=== PATIENT | female | born 1980 | race Caucasian/White ===

== ENCOUNTER 2017-01-02 09:12 | Emergency (ER) | payer OTHER ==
[~2017-01-02] VITALS: Ht 162.6 cm; Wt 74.8 kg
--- NOTE | 2017-01-02 09:21 | ED GI/GU/ABDOMINAL COMPLAINT ---
History of Present Illness General Chief Complaint: Abdominal Pain/Flank Pain Stated Complaint: ABD PAIN Source: patient, family Exam Limitations: no limitations Vital Signs & Intake/Output Vital Signs & Intake/Output Vital Signs Date Time Temp Pulse Resp B/P Pulse O2 O2 Flow FiO2 Ox Delivery Rate 01/02 0926 97.4 96 18 148/89 97 Room Air Allergies Coded Allergies: benzoyl peroxide (Intermediate, RASH 01/02/17) Sulfa (Sulfonamide Antibiotics) (Mild, RASH 01/02/17) latex (Mild, RASH 01/02/17) Penicillins (UNKNOWN 01/02/17) Reconcile Medications Zolpidem Tartrate 10 MG TABLET 1 TAB PO QPM SLEEP (Reported) Triage Nurses Notes Reviewed? yes ? n Is pt currently ? No HPI: Patient has been having severe dysmenorrhea over the past year. The symptoms are worsening. Patient states that now when she gets her. She is out of commission for a few days. Patient has had canceled the office and even had to cancel the operating room because the pain. Patient's second menstruation 2 days ago and has been having 10 out of 10 severe crampy pain at the site of the incision. The pain radiates down into both thighs. The pain is constant. There is no relief with Motrin. Patient states that she occasionally takes Ultram but then only makes her feel sleepy and does not do anything for the pain. Patient is called her heel scorer multiple times about this but has been unable to see him yet for it. Patient denies any dysuria. There is no nausea or vomiting. Past History Travel History Traveled to [place] past 21 day No Medical History Any Pertinent Medical History? see below for history Surgical History Surgical History: Psychosocial History Tobacco Use: Never used ETOH Use: occasional use Illicit Drug Use: denies illicit drug use Family History Hx Contributory? No Review of Systems Review of Systems Constitutional: Reports: no symptoms. EENTM: Reports: no symptoms. Respiratory: Reports: no symptoms. Cardiovascular: Reports: no symptoms. GI: Reports: see HPI, abdominal pain. Genitourinary: Reports: see HPI. Musculoskeletal: Reports: no symptoms. Skin: Reports: no symptoms. Neurological/Psychological: Reports: no symptoms. Hematologic/Endocrine: Reports: no symptoms. Immunologic/Allergic: Reports: no symptoms. All Other Systems: Reviewed and Negative Physical Exam Physical Exam General Appearance: well developed/nourished, alert, awake, anxious, moderate distress Head: atraumatic, normal appearance Eyes: Bilateral: PERRL, EOMI. Ears, Nose, Throat, Mouth: hearing grossly normal, moist mucous membrane Neck: normal inspection, supple, full range of motion Respiratory: normal breath sounds, chest non-tender, no respiratory distress, lungs clear Cardiovascular: regular rate/rhythm, normal peripheral pulses Gastrointestinal: normal bowel sounds, soft Back: normal inspection, normal range of motion Extremities: normal range of motion Neurologic/Psych: no motor/sensory deficits, awake, alert, oriented x 3, normal gait, normal mood/affect Skin: intact, normal color, warm/dry Core Measures ACS in differential dx? No Severe Sepsis Present: No Septic Shock Present: No Progress Differential Diagnosis: ectopic , gastritis, hepatitis, ischemic bowel, inflamm bowel dis, intrauterine , PID/cervicitis, threatened AB, UTI/ pyelo, ENDOMETRIOSIS Plan of Care: Orders Procedure Date/time Status URINALYSIS 01/03 920 Active HUMAN BETA HCG SCREEN 01/03 920 Complete COMPREHENSIVE METABOLIC PANEL 01/03 920 Complete CBC WITHOUT DIFFERENTIAL 01/03 920 Complete Laboratory Tests 01/02/17 0932: Anion Gap 16, Estimated GFR > 60, BUN/Creatinine Ratio 20.0, Glucose 108 H, Calcium 9.9, Total Bilirubin 0.5, AST 74 H, ALT 95 H, Alkaline Phosphatase 69, Total Protein 7.4, Albumin 4.5, Globulin 2.9, Albumin/Globulin Ratio 1.6, Total Beta HCG NEGATIVE, CBC w Diff NO MAN DIFF REQ, RBC 4.65, MCV 92.3, MCH 31.1 H, RDW 12.0, MPV 7.4, Gran % 48.8, Lymphocytes % 39.4, Monocytes % 7.5, Eosinophils % 3.8, Basophils % 0.5, Absolute Granulocytes 3.0, Absolute Lymphocytes 2.4, Absolute Monocytes 0.5, Absolute Eosinophils 0.2, Absolute Basophils 0, PUBS MCHC 33.7 Diagnostic Imaging: Viewed by Me: Ultrasound. Discussed w/RAD: Ultrasound. Radiology Impression: PATIENT: SIVA ANDUJAR PRESENT AGE: 36 PATIENT ACCOUNT NO: [id number] : 80 LOCATION: [facility] ORDERING PHYSICIAN: JOSE CLARKE MD SERVICE DATE: 01/02/17 EXAM TYPE: US - US-TRANSVAGINAL EXAMINATION: US TRANSVAGINAL CLINICAL INFORMATION: Dysmenorrhagia. Endometriosis. COMPARISON: None TECHNIQUE: Initial transabdominal imaging was performed but because of limited visualization, transvaginal imaging was performed. FINDINGS: UTERUS: The uterus is normal in size and appearance measuring 6.7 x 4.1 x 4.8 cm. Endometrial thickness measures 0.5 cm. Cervical length measures 2.8 cm. RIGHT OVARY: The right ovary is normal in size and appearance with normal follicles. The ovary measures 4.0 x 1.5 x 2.3 cm with a volume are of 7 mL. Normal color and spectral Doppler blood flow is seen with normal venous and arterial waveforms. LEFT OVARY: There is a large complex cyst in the left ovary measuring 4.4 x 3.1 x 4.1 cm. Appearance is consistent with hemorrhagic cyst. Normal parenchyma is evident around the periphery of the cyst. Normal color and spectral Doppler blood flow is seen with normal venous and arterial waveforms with no evidence for torsion. No free fluid is demonstrated. IMPRESSION: 1. Complex cyst left ovary consistent with hemorrhagic cyst. Follow-up showing resolution in 6 weeks' time is suggested. 2. Otherwise normal examination. DICTATED BY: LINDA NAIR MD DATE/TIME DICTATED:01/02/171021 CUSTOMER DEVELOPMENT REPRESENTATIVE:MANNY DATE/TIME TRANSCRIBED:1021 CONFIDENTIAL, DO NOT COPY WITHOUT APPROPRIATE AUTHORIZATION. < Electronically signed in Other Vendor System> SIGNED BY: LINDA NAIR MD 01/02/17 1033 Initial ED EKG: none Comments: Discussed with gynecology. Patient will follow-up as an outpatient. Departure Departure Disposition: HOME OR SELF CARE Condition: Stable Clinical Impression Primary Impression: Dysmenorrhea Referrals: PATIENT HAS NO PRIMARY CARE DR (PCP/Family) ABRAM RODRIGUEZ MD Additional Instructions: Return if symptoms worsen or as needed or for any concerns. Departure Forms: Customer Survey General Discharge Information Prescriptions: Current Visit Scripts Tramadol HCl 1 TAB PO Q6P PRN PAIN #30 TAB
[2017-01-02 09:46] LABS: ABSOLUTE BASOPHIL COUNT 0 /CUMM (0.0-0.2); ABSOLUTE EOSINOPHIL COUNT 0.2 /CUMM (0.0-0.7); ABSOLUTE LYMPH COUNT 2.4 /CUMM (1.2-3.4); ABSOLUTE MONOCYTE COUNT 0.5 /CUMM (0.10-0.60); BASOPHIL % 0.5 % (0.0-2.0); EOSINOPHIL % 3.8 % (0-5); GRANULOCYTE % 48.8 % (42.2-75.2); HEMATOCRIT 42.9 % (37-47); MEAN CORPUSCULAR HGB 31.1 PG (27.0-31.0); MEAN CORPUSCULAR HGB CONC 33.7 G/DL (33.0-37.0); MEAN CORPUSCULAR VOLUME 92.3 FL (81.0-99.0); MEAN PLATELET VOLUME 7.4 FL (7.4-10.4); PLATELET COUNT 282 /CUMM (130-400); RED BLOOD CELL CT 4.65 /CUMM (4.20-5.40); WHITE BLOOD CELL COUNT 6.1 /CUMM (4.8-10.8)
[2017-01-02] MEDS ORDERED: ZOLPIDEM TARTRA10 M1 PO (10:12)
--- NOTE | 2017-01-02 10:33 | ULTRASOUND REPORT ---
EXAMINATION: US TRANSVAGINAL CLINICAL INFORMATION: Dysmenorrhagia. Endometriosis. COMPARISON: None TECHNIQUE: Initial transabdominal imaging was performed but because of limited visualization, transvaginal imaging was performed. FINDINGS: UTERUS: The uterus is normal in size and appearance measuring 6.7 x 4.1 x 4.8 cm. Endometrial thickness measures 0.5 cm. Cervical length measures 2.8 cm. RIGHT OVARY: The right ovary is normal in size and appearance with normal follicles. The ovary measures 4.0 x 1.5 x 2.3 cm with a volume are of 7 mL. Normal color and spectral Doppler blood flow is seen with normal venous and arterial waveforms. LEFT OVARY: There is a large complex cyst in the left ovary measuring 4.4 x 3.1 x 4.1 cm. Appearance is consistent with hemorrhagic cyst. Normal parenchyma is evident around the periphery of the cyst. Normal color and spectral Doppler blood flow is seen with normal venous and arterial waveforms with no evidence for torsion. No free fluid is demonstrated. IMPRESSION: 1. Complex cyst left ovary consistent with hemorrhagic cyst. Follow-up showing resolution in 6 weeks' time is suggested. 2. Otherwise normal examination.
[2017-01-02] MEDS ORDERED: TRAMADOL HCL50 M1 PO (11:21)
[2017-01-02 11:22] VITALS: BP 123/73
== END 2017-01-02 11:27 ==
LOC: ERH 09:12
PROVIDERS: Emergency Medicine
DX: N94.6 Dysmenorrhea, unspecified (principal)
CPT/HCPCS: 96361; 96374; J1885